=== PATIENT | male | born 1985 | race Hispanic/Latino ===

== ENCOUNTER 2019-04-16 12:57 | Emergency (ER) | payer SELFPAY ==
[2019-04-16] MEDS ORDERED: Ketorolac Tromethamine 60 MG/2 ML VIAL ONE (13:13)
[2019-04-16 13:33] LABS: #Basophils 0.1 thou/uL (0.0-0.2); #Eosinphils 0.4 thou/uL (0.0-0.7); #Monocytes 0.6 thou/uL (0.11-0.59); #Neutrophils 3.9 thou/uL (1.40-6.50); %Basophils 0.9 % (0.0-1.0); %Eosinophils 5.4 % (0.0-10.0); %Lymphocytes 28.6 % (21.0-51.0); %Monocytes 8.9 % (0.0-10.0); %Neutrophils 56.2 % (42.0-75.0); Hemoglobin 14.2 g/dL (14.0-18.0); Mean Corpuscular HGB CONC 32.1 g/dL (32.0-36.0); Mean Corpuscular Hemoglobin 27.4 pg (27.0-31.0); Mean Corpuscular Volume 85.5 fL (78.0-98.0); Mean Platelet Volume 6.4 fL (7.4-10.4); Platelet Count 282 thou/uL (130-400); RBC Distribution Width 12.1 % (11.5-14.5); Red Blood Cell (RBC) Count 5.18 mill/uL (4.70-6.10); White Blood Cell (WBC) Count 6.9 thou/uL (4.8-10.8)
[2019-04-16 13:33] LABS: Bilirubin Negative (Negative); Blood, Urine Negative (Negative); Clarity Clear (Clear); Glucose, Urine (Dipstick) Negative (Negative); Leukocyte Negative (Negative); Nitrite Negative (Negative); Protein, Urine (Dipstick) Negative (Neg-Trace); Urobilinogen 0.2 mg/dL (Less than 2)
[2019-04-16 13:45] LABS: Anion Gap 12 mmol/L (10-20); BUN (Urea Nitrogen) 9 mg/dL (8.9-20.6); Calc. Creatinine Clearance 0 mL/min (70-130); Calcium 8.8 mg/dL (7.8-10.44); Carbon Dioxide 24 mmol/L (22-29); Chloride 105 mmol/L (98-107); Estimated GFR-MDRD Greater than 90; Glucose 100 mg/dL (70-105); Sodium 137 mmol/L (136-145)
--- NOTE | 2019-04-16 15:00 | CT ---
CT ABDOMEN AND PELVIS WITHOUT CONTRAST: 04/16/19 PROVIDED CLINICAL HISTORY: Back pain. FINDINGS: The visualized lung bases are free of significant opacity. There is diffuse fatty infiltration of the liver. The solid abdominal organs are suboptimally evaluat ed in the absence of IV contrast material but demonstrates an otherwise unremarkable unenhanced CT ap pearance. No evidence for urinary tract calculi or hydronephrosis. No bowel dilatation, inflammatory fat stranding, free fluid or free air apparent. The appendix appear s normal. There is a 1 cm sclerotic focus within the left medial iliac bone that is incompletely characterized on the basis of this study. IMPRESSION: 1. No evidence for urinary tract calculi or hydronephrosis. 2. Diffuse fatty liver. 3. Incompletely characterized sclerotic focus involving the left iliac bone. Correlation with no nemergent follow-up whole body bone scan is recommended. POS: [facility]
== END 2019-04-16 13:55 | disposition home or self-care (01) ==
LOC: NAV ERS 12:57
DX: M54.5 Low back pain (principal)
CPT/HCPCS: 74176; 80048; 81003; 85025; 96372; J1885

== ENCOUNTER 2021-03-29 10:46 | Emergency (ER) | payer SELFPAY ==
[2021-03-29] MEDS ORDERED: Lidocaine 1% (PF) 30 ML VIAL ONE (10:57)
== END 2021-03-29 11:58 | disposition home or self-care (01) ==
LOC: NAV ERS 10:46
DX: T16.2XXA Foreign body in left ear, initial encounter (principal)
CPT/HCPCS: 69200; J2001